=== PATIENT | male | born 1960 | race Caucasian/White ===

== ENCOUNTER 2016-10-03 13:34 | Emergency (ER) | payer MEDICAID ==
--- NOTE | 2016-10-03 13:46 | EDPHY ---
HPI/HX/ROS/PE/MDM Narrative: CHIEF COMPLAINT: Right facial droop. HISTORY OF PRESENT ILLNESS: The patient is a 65-year-old male, brought in by EMS , presenting with right facial droop that started yesterday. The patient has a history of strokes. Yesterday he had dental work and had the right side of his that required anesthesia. The patient has unresolved right sided facial droop. He complains that he does not feel well and states he was more confused. According to EMS report from staff nurse at [facility], the patient has been complaining of polyuria, polydipsia, and dysuria. Patient has history of DM2, during transport BGL was 346. BP 140/90. The patient denies chest pain. Patient is comfort measures only. He takes Aspirin daily. History is difficult to obtain as patient is a very poor historian. REVIEW OF SYSTEMS: Somewhat limited secondary to the patient's clinical condition. PAST MEDICAL HISTORY: Diabetes II, CVA, Vascular dementia, CAD, HTN, Bipolar disease. SOCIAL HISTORY: Resides at [facility]. VITAL SIGNS: Reviewed by me GENERAL: Debilitated, chronically ill appearing. Smells slightly ketotic. Attempts to answer questions, but difficulty following commands. HEENT: Atraumatic. Eyes: No icterus, no injection. Mouth: dry mucous membranes, very poor dentition. No erythema or lesions. Neck: supple with no adenopathy. LUNGS: Diminished breath sounds. CARDIAC: Regular rate and rhythm, no rubs, murmurs or gallops. ABDOMEN: Soft, nontender, nondistended, bowel sounds normal. BACK: No CVA tenderness. EXTREMITIES: Moving all extremities. NEURO: Questionable difficulty closing right eye. Uncooperative with cranial nerve exam. Appears to have right facial droop at rest. Hand animal behaviorist strength is 5 /5 bilaterally. Moving lower extremities. Uncooperative with the full neurologic exam. SKIN: Warm and dry, no rash. PSYCHIATRIC: Normal mentation, no agitation. Portions of this note were transcribed by a medical records coordinator. I personally performed a history, physical exam, medical decision making, and confirmed accuracy of information the transcribed note. ED Course: The patient was brought in by EMS from [facility] for unresolved right facial droop. Yesterday the patient had dental work done to his right side that required anesthesia. He continued to have right sided facial droop today. The patient has a history of stroke and diabetes. On exam he seems very dehydrated. He appears to have right facial droop at rest, though cranial examination is difficult to obtain. Patient is unable to follow complex commands, but responds to questions. Plan to check labs, EKG, and Troponin. CT head was ordered. 12-LEAD EKG: Please see the full report in [facility]. My interpretation: ST depression and T-wave inversions laterally. Suggestive of ischemia. Similar to previous. Head CT was negative. Patient's labs are remarkable for creatinine 1.5 as well as hyperglycemia. He is not acidotic. Consideration was given to admission to the hospital for acute renal insufficiency. EKG is somewhat concerning although similar to prior. However, the patient's MOST form demonstrates that he is comfort measures only. This was verified with the patient. 3:10 p.m.: I spoke to the patient and discussed his wishes. Right facial droop has resolved. Plan to have social work program coordinator speak with the patient. 4:00 p.m. I spoke to case management who will see the patient and look into other options. 4:30 p.m.: The patient would like to go back to [facility]. Plan to discharge. MDM: Differential diagnoses for the patient's symptom complex was considered including but not limited to [place]'s palsy, TIA, CVA, hyperglycemia, electrolyte abnormalities, cardiac ischemia, DKA, acute renal insufficiency, occult infection. - Data Points Imaging Results: Imaging Impressions Head CT 10/03/16 13:50 Impression: Extensive periventricular and deep hemispheric white matter change which is nonspecific and can be seen with small vessel ischemic disease. No evidence for acute intracranial abnormality. Results called and discussed with Suly Guerrero MD, at 1433 hours 10/03/2016. Imaging: Discussed imaging studies w/ retail pos specialist Radiologist Laboratory Results: Laboratory Results 10/03/16 13:50 10/03/16 13:50 10/03/16 10/03/16 10/03/16 13:50 13:50 13:50 WBC 11.18 10^3/uL H 10^3/uL (3.80-9.50) RBC 4.49 10^6/uL 10^6/uL (4.40-6.38) Hgb 14.7 g/dL g/dL (13.7-17.5) Hct 41.7 % % (40.0-51.0) MCV 92.9 fL fL (81.5-99.8) MCH 32.7 pg pg (27.9-34.1) MCHC 35.3 g/dL g/dL (32.4-36.7) RDW 13.3 % % (11.5-15.2) Plt Count 183 10^3/uL 10^3/uL (150-400) MPV 10.1 fL fL (8.7-11.7) Neut % (Auto) 69.1 % % (39.3-74.2) Lymph % (Auto) 17.0 % % (15.0-45.0) [place] % (Auto) 12.6 % % (4.5-13.0) Eos % (Auto) 0.2 % L % (0.6-7.6) Baso % (Auto) 0.7 % % (0.3-1.7) Nucleat RBC Rel Count 0.0 % % (0.0-0.2) Absolute Neuts (auto) 7.73 10^3/uL H 10^3/uL (1.70-6.50) Absolute Lymphs (auto) 1.90 10^3/uL 10^3/uL (1.00-3.00) Absolute Monos (auto) 1.41 10^3/uL H 10^3/uL (0.30-0.80) Absolute Eos (auto) 0.02 10^3/uL L 10^3/uL (0.03-0.40) Absolute Basos (auto) 0.08 10^3/uL 10^3/uL (0.02-0.10) Absolute Nucleated RBC 0.00 10^3/uL 10^3/uL (0-0.01) Immature Gran % 0.4 % % (0.0-1.1) Seg Neutrophils % 67 % % Lymphocytes % 23 % % Monocytes % 9 % % Basophils % 1 % % Immature Gran # 0.04 10^3/uL 10^3/uL (0.00-0.10) Absolute Seg Neuts 7.49 10^/uL H 10^/uL (1.70-6.50) Absolute Lymphocytes 2.57 10^3/uL 10^3/uL (1.00-3.00) Absolute Monocytes 1.01 10^3/uL H 10^3/uL (0.30-0.80) Absolute Basophils 0.11 10^3/uL H 10^3/uL (0.02-0.10) RBC/WBC/PLT Morphology NORMAL (NORMAL) Atypical Lymphocytes 1+ H Platelet Estimate ADEQUATE (ADEQ) PT 13.4 SEC SEC (12.0-15.0) INR 1.03 (0.83-1.16) Sodium 139 mEq/L mEq/L (134-144) Potassium 3.6 mEq/L mEq/L (3.5-5.2) Chloride 100 mEq/L mEq/L (97-110) Carbon Dioxide 27 mEq/l mEq/l (22-31) Anion Gap 12 mEq/L mEq/L (8-16) BUN 43 mg/dL H mg/dL (7-23) Creatinine 1.5 mg/dL H mg/dL (0.7-1.3) Estimated GFR 48 Glucose 331 mg/dL H mg/dL (70-100) Calcium 9.6 mg/dL mg/dL (8.5-10.4) Troponin I 0.016 ng/mL ng/mL (0-0.034) Beta-Hydroxybutyrate 0.06 mmol/L mmol/L (0.02-0.27) Serum Ketones TNP Medications Given: Discontinued Medications Sodium Chloride (Ns) 1,000 mls @ 500 mls/hr IV EDNOW ONE Stop: 10/03/16 15:48 Last Admin: 10/03/16 14:15 Dose: 1,000 mls Insulin Human Regular (Humulin R) 10 unit IVP EDNOW ONE Stop: 10/03/16 15:17 Last Admin: 10/03/16 15:34 Dose: 10 units General Time Seen by Provider: 10/03/16 13:34 Initial Vital Signs: Initial Vital Signs Temperature (C) 36.9 C 10/03/16 13:48 Heart Rate 69 10/03/16 13:48 Respiratory Rate 19 10/03/16 13:48 Blood Pressure 150/98 H 10/03/16 13:48 O2 Sat (%) 95 10/03/16 13:48 O2 Delivery Mode Nasal Cannula O2 (L/minute) 2 Allergies/Adverse Reactions: No Known Allergies Allergy (Unverified 05/23/16 19:11) Home Medications: Medication Instructions Recorded Amlodipine Besylate 12/07/15 Aspirin 12/07/15 Ativan 12/07/15 Atovastatin 12/07/15 Carvedilol 12/07/15 Celexa 12/07/15 Levemir Flextouch 12/07/15 Lisinopril 12/07/15 Miralax 17 gm (OTC) 12/07/15 Novolog 12/07/15 Oxycodone HCl 12/07/15 Plavix 12/07/15 Terazosin HCl 12/07/15 Trileptal 12/07/15 clonIDINE 12/07/15 traZODONE 12/07/15 Departure - Departure Disposition: Home, Routine, Self-Care Clinical Impression: Dehydration, Hyperglycemia, Renal insufficiency, possible TIA Condition: Good Instructions: Dehydration (ED), Diabetic Hyperglycemia (ED) Additional Instructions: #1. Drink plenty of fluids. #2. Take your medications as directed. Referrals: CAROL HADDAD [Primary Care Provider] - As per Instructions Report Scribed for: Suly Guerrero Report Scribed by: Yesica Martinez Date of Report: 10/03/16 Time of Report: 13:51
[2016-10-03] MEDS ORDERED: NS 1,000 ML IV ONE (13:49)
--- NOTE | 2016-10-03 14:00 | CPEKG ---
Heart Rate: 63 RR Interval: 952 P-R Interval: 192 QRSD Interval: 106 QT Interval: 408 QTC Interval: 418 P [place]: 53 QRS [place]: 32 T Wave [place]: 219 EKG Severity - ABNORMAL ECG - EKG Impression: SINUS RHYTHM EKG Impression: CONSIDER ANTEROSEPTAL INFARCT EKG Impression: SECONDARY ST TWAVE ABNORMALITY EKG Impression: INCOMPLETE LEFT BUNDLE BRANCH BLOCK Electronically Signed By: Venu Zhao 07-Oct-2016 14:42:02
[2016-10-03 14:01] LABS: % IMMATURE GRANULYOCYTES 0.4 % (0.0-1.1); ABSOLUTE IMMATURE GRANULOCYTES 0.04 10^3/uL (0.00-0.10); ADD DIFF? NO; ADD MORPH? NO; ADD SCAN? YES; ATYPICAL LYMPHOCYTE FLAG 0 (0-99); FRAGMENT RBC FLAG 0 (0-99); HEMATOCRIT 41.7 % (40.0-51.0); HEMOGLOBIN 14.7 g/dL (13.7-17.5); LEFT SHIFT FLG 20 (0-99); LIPEMIA HEMOLYSIS FLAG 90 (0-99); MEAN CELL HEMOGLOBIN 32.7 pg (27.9-34.1); MEAN CELL HEMOGLOBIN CONCENTR. 35.3 g/dL (32.4-36.7); MEAN CELL VOLUME 92.9 fL (81.5-99.8); MEAN PLATELET VOLUME 10.1 fL (8.7-11.7); PLATELET CLUMPS FLAG 0 (0-99); PLATELET COUNT 183 10^3/uL (150-400); RED BLOOD CELL COUNT 4.49 10^6/uL (4.40-6.38); RED CELL DISTRIBUTION WIDTH 13.3 % (11.5-15.2)
[2016-10-03 14:10] LABS: INR 1.03 (0.83-1.16); PROTIME(PATIENT) 13.4 SEC (12.0-15.0)
[2016-10-03 14:19] LABS: ANION GAP 12 mEq/L (8-16); CALCIUM 9.6 mg/dL (8.5-10.4); CARBON DIOXIDE 27 mEq/l (22-31); CHLORIDE 100 mEq/L (97-110); CREATININE 1.5 mg/dL (0.7-1.3); GLOMERULAR FILTRATION RATE 48; GLUCOSE 331 mg/dL (70-100); POTASSIUM 3.6 mEq/L (3.5-5.2); SODIUM 139 mEq/L (134-144)
[2016-10-03 14:29] LABS: TROPONIN I 0.016 ng/mL (0-0.034)
[2016-10-03 14:37] LABS: SCAN POSITIVE
[2016-10-03 14:41] LABS: PLATELET ESTIMATE ADEQUATE (ADEQ)
[2016-10-03 15:05] LABS: B-HYDROXYBUTYRATE 0.06 mmol/L (0.02-0.27)
[2016-10-03] MEDS ORDERED: INSULIN REGULAR HUMAN 100 UNIT/ML IVP ONE (15:16)
[2016-10-03 18:26] VITALS: BP 140/79; PULSE 70; RESP 20; TEMP 98.2; O2SAT 95
== END 2016-10-03 18:27 | disposition home or self-care (01) ==
LOC: EDUNIT#
DX: E86.0 Dehydration (principal); E11.65 Type 2 diabetes mellitus with hyperglycemia; N28.9 Disorder of kidney and ureter, unspecified; I10 Essential (primary) hypertension; I25.10 Atherosclerotic heart disease of native coronary artery without angina pectoris; Z79.4 Long term (current) use of insulin; Z79.82 Long term (current) use of aspirin; Z86.73 Personal history of transient ischemic attack (TIA), and cerebral infarction without residual deficits
CPT/HCPCS: 96374; J1815

== ENCOUNTER 2016-11-17 02:31 | Emergency (ER) | payer MEDICAID ==
[2016-11-17] MEDS ORDERED: ASPIRIN 81 MG CHEWABLE TAB PO ONE (02:36)
[2016-11-17] MEDS ORDERED: NS 1,000 ML IV ONE (02:36)
--- NOTE | 2016-11-17 02:38 | EDPHY ---
H & P HPI/ROS: HPI CHIEF COMPLAINT: Left-sided chest pain HISTORY OF PRESENT ILLNESS: This patient is a very pleasant 56-year-old male who presents to the emergency room from [facility], he does have significant past medical history for coronary artery disease, CVA, vascular dementia, diabetes, hypertension, bipolar, and presents with left-sided chest discomfort. Of note he has a very poor historian. Cannot tell me when this chest discomfort started. He thinks it has been there for few hours, he cannot describe the pain. Does tell me it is Nonradiating. No associated nausea or vomiting pain no associated diaphoresis. Tells me the pain has been constant is still present. No shortness of breath. No pleuritic pain. Past Medical History: Coronary artery disease, CVA, vascular dementia, diabetes , hypertension, bipolar Past Surgical History: No recent surgical history Social History: Denies daily use of drugs alcohol tobacco products, resides at [facility] Family History: Noncontributory ROS REVIEW OF SYSTEMS: Limited review systems due to place since underlying dementia. Exam Constitutional triage nursing summary reviewed, vital signs reviewed, awake/ alert. Eyes normal conjunctivae and sclera, EOMI, PERRLA. HENT oropharynx poor dentition. normal inspection, atraumatic, moist mucus membranes, no epistaxis, neck supple/ no meningismus, no raccoon eyes. Respiratory clear to auscultation bilaterally, normal breath sounds, no respiratory distress, no wheezing. Cardiovascular rate normal, regular rhythm, no murmur, no edema, distal pulses normal. Gastrointestinal soft, non-tender, no rebound, no guarding, normal bowel sounds, no distension, no pulsatile mass. Genitourinary no CVA tenderness. Musculoskeletal no midline vertebral tenderness, full range of motion, no calf swelling, no tenderness of extremities, no meningismus, good pulses, neurovascularly intact. Skin pink, warm, & dry, no rash, skin atraumatic. Neurologic awake, alert and oriented x 3, AAOx3, moves all 4 extremities equally, motor intact, sensory intact, CN II-XII intact, normal cerebellar, normal vision, normal speech. Psychiatric normal mood/affect. Heme/Lymph/Immune no lymphadenopathy. Differential diagnosis includes but is not limited to: ACS, atypical chest pain , pneumothorax, pneumonia, pulmonary embolism, aortic dissection, congestive heart failure, tumor, musculoskeletal pain, esophageal pain, GERD, peptic ulcer disease, pancreatitis Medical Decision Making: Plan for this patient full teletypesetter monitor, IV establishment, check troponin, EKG, chest x-ray. Full-dose aspirin. Nitroglycerin to see if this improves his chest pain. Re-evaluation: EKG interpretation by me on record in [facility] system. Impression time of EKG 2:47 a.m., sinus rhythm rate of 55 abnormal T-wave abnormalities V4 V5 V6. However when I compare this EKG to his old EKG dated 10/03/2016 very similar morphology. Q-waves down V1 V2 V3. And T-wave abnormality seen in V4 V5 V6 drip very similar to previous EKG. Morphology appears same. I do not appreciate acute new ischemic changes on this EKG. 0506: Patient noted to be hypertensive when he arrived here. I have ordered him a dose of clonidine as he does take this at home. His EKG is unchanged from his previous EKG negative D-dimer, negative troponin. Chest x-ray is unremarkable here. I did re-evaluate him at this time. He tells me has no chest pain adamantly asking to go home. He is requesting discharge. I explained we should repeat his EKG and troponin and 4 hours just to make sure he is okay. His EKG is unchanged from his previous EKGs. Currently has no chest pain. 0508AM: Patient continuously asked me to be discharged to go home. I explained we need to be careful repeat his EKG and troponin. He is agreeable for this at this time. 0628AM: This is a repeat EKG time of EKG 6:26 a.m., sinus rhythm rate of 54 again noted T-wave abnormalities in V4 V5 V6. Q-waves in V1 V2 V3. T-wave abnormality seen in 2 3 AVF. Again when I compare this EKG to his old EKG dated 10/03/2016 very similar morphology also this EKG is very similar morphology to his previous 1 this evening time 2:47 a.m.. Repeat troponin pending at this time. 0629: Again this patient has no chest pain. He is again requesting be discharged back to [facility]. His repeat EKG is not acutely changed from his previous old EKG and the 1 from today. If his 2nd troponin is negative he has not had any chest pain here he is requesting discharge her allowed to go home as he has unchanged EKG from previous as well as 2-troponins. I feel that it is reasonable to allow her to go back to [facility]. He does understand if develops chest pain, shortness of breath return emergency room. 0655AM: Repeat troponin is negative. Patient is again asking me to be discharged. Given that he has 2 EKGs that are unchanged from his previous EKG and 2-troponins spaced over 4 hours apart and spaced 5-6 hours from his time of onset of symptoms which was not very specific. I feel it is reasonable to allowed to go home. He has no ongoing chest pain. His EKG is stable from previous EKGs and 2-troponins. Source: Patient, EMS - Medical/Surgical History Hx Asthma: No Hx Chronic Respiratory Disease: No Hx Diabetes: Yes Hx Cardiac Disease: Yes Hx Renal Disease: No Hx Cirrhosis: No Hx Alcoholism: No Hx HIV/AIDS: No Hx Splenectomy or Spleen Trauma: No Other PMH: cva,htn,niddm,bipolar,dementia,cad, - Social History Smoking Status: Unknown if ever smoked Constitutional: Initial Vital Signs Temperature (C) 36.7 C 11/17/16 02:36 Heart Rate 54 L 11/17/16 02:36 Respiratory Rate 16 11/17/16 02:36 Blood Pressure 181/112 H 11/17/16 02:36 O2 Sat (%) 92 11/17/16 02:36 O2 Delivery Mode Room Air Allergies/Adverse Reactions: No Known Allergies Allergy (Unverified 11/17/16 02:35) Home Medications: Medication Instructions Recorded Amlodipine Besylate 12/07/15 Aspirin 12/07/15 Ativan 12/07/15 Atovastatin 12/07/15 Carvedilol 12/07/15 Celexa 12/07/15 Levemir Flextouch 12/07/15 Lisinopril 12/07/15 Miralax 17 gm (OTC) 12/07/15 Novolog 12/07/15 Oxycodone HCl 12/07/15 Plavix 12/07/15 Terazosin HCl 12/07/15 Trileptal 12/07/15 clonIDINE 12/07/15 traZODONE 12/07/15 Medical Decision Making - Data Points Laboratory Results: Laboratory Results 11/17/16 02:30 11/17/16 02:30 11/17/16 11/17/16 11/17/16 06:25 02:30 02:30 WBC RBC Hgb Hct MCV MCH MCHC RDW Plt Count MPV Neut % (Auto) Lymph % (Auto) [place] % (Auto) Eos % (Auto) Baso % (Auto) Nucleat RBC Rel Count Absolute Neuts (auto) Absolute Lymphs (auto) Absolute Monos (auto) Absolute Eos (auto) Absolute Basos (auto) Absolute Nucleated RBC Immature Gran % Immature Gran # PT 13.9 SEC SEC (12.0-15.0) INR 1.08 (0.83-1.16) APTT 29.6 SEC SEC (23.0-38.0) D-Dimer 0.28 ug/mLFEU ug/mLFEU (0.00-0.50) Sodium 135 mEq/L mEq/L (134-144) Potassium 3.9 mEq/L mEq/L (3.5-5.2) Chloride 101 mEq/L mEq/L (97-110) Carbon Dioxide 22 mEq/l mEq/l (22-31) Anion Gap 12 mEq/L mEq/L (8-16) BUN 21 mg/dL mg/dL (7-23) Creatinine 1.0 mg/dL mg/dL (0.7-1.3) Estimated GFR > 60 Glucose 283 mg/dL H mg/dL (70-100) Calcium 9.4 mg/dL mg/dL (8.5-10.4) Magnesium 1.9 mg/dL mg/dL (1.6-2.3) Total Bilirubin 0.8 mg/dL mg/dL (0.1-1.4) Conjugated Bilirubin 0.5 mg/dL mg/dL (0.0-0.5) Unconjugated Bilirubin 0.3 mg/dL mg/dL (0.0-1.1) AST 19 IU/L IU/L (17-59) ALT 32 IU/L IU/L (21-72) Alkaline Phosphatase 101 IU/L IU/L (38-126) Creatine Kinase 58 IU/L IU/L (0-224) CK-MB (CK-2) Fraction 1.52 ng/mL ng/mL (0-3.19) Troponin I < 0.012 ng/mL ng/mL < 0.012 ng/mL ng/mL (0-0.034) (0-0.034) NT-Pro-B Natriuret Pep 199 pg/mL H pg/mL (0-125) Total Protein 7.6 g/dL g/dL (6.3-8.2) Albumin 4.3 g/dL g/dL (3.5-5.0) Lipase 67.0 IU/L IU/L (23-300) 11/17/16 02:30 WBC 8.33 10^3/uL 10^3/uL (3.80-9.50) RBC 4.53 10^6/uL 10^6/uL (4.40-6.38) Hgb 14.8 g/dL g/dL (13.7-17.5) Hct 41.3 % % (40.0-51.0) MCV 91.2 fL fL (81.5-99.8) MCH 32.7 pg pg (27.9-34.1) MCHC 35.8 g/dL g/dL (32.4-36.7) RDW 12.7 % % (11.5-15.2) Plt Count 243 10^3/uL 10^3/uL (150-400) MPV 9.6 fL fL (8.7-11.7) Neut % (Auto) 62.2 % % (39.3-74.2) Lymph % (Auto) 22.8 % % (15.0-45.0) [place] % (Auto) 10.9 % % (4.5-13.0) Eos % (Auto) 2.9 % % (0.6-7.6) Baso % (Auto) 0.8 % % (0.3-1.7) Nucleat RBC Rel Count 0.0 % % (0.0-0.2) Absolute Neuts (auto) 5.18 10^3/uL 10^3/uL (1.70-6.50) Absolute Lymphs (auto) 1.90 10^3/uL 10^3/uL (1.00-3.00) Absolute Monos (auto) 0.91 10^3/uL H 10^3/uL (0.30-0.80) Absolute Eos (auto) 0.24 10^3/uL 10^3/uL (0.03-0.40) Absolute Basos (auto) 0.07 10^3/uL 10^3/uL (0.02-0.10) Absolute Nucleated RBC 0.00 10^3/uL 10^3/uL (0-0.01) Immature Gran % 0.4 % % (0.0-1.1) Immature Gran # 0.03 10^3/uL 10^3/uL (0.00-0.10) PT INR APTT D-Dimer Sodium Potassium Chloride Carbon Dioxide Anion Gap BUN Creatinine Estimated GFR Glucose Calcium Magnesium Total Bilirubin Conjugated Bilirubin Unconjugated Bilirubin AST ALT Alkaline Phosphatase Creatine Kinase CK-MB (CK-2) Fraction Troponin I NT-Pro-B Natriuret Pep Total Protein Albumin Lipase Medications Given: Discontinued Medications Aspirin (Aspirin) 324 mg PO EDNOW ONE Stop: 11/17/16 02:37 Last Admin: 11/17/16 02:49 Dose: 324 mg Clonidine (Catapres) 0.2 mg PO EDNOW ONE Stop: 11/17/16 05:04 Last Admin: 11/17/16 05:08 Dose: 0.2 mg Sodium Chloride (Ns) 1,000 mls @ 0 mls/hr IV ONCE ONE; Wide Open PRN Reason: Protocol Stop: 11/17/16 02:37 Last Admin: 11/17/16 02:56 Dose: 1,000 mls Nitroglycerin (Nitrostat) 0.4 mg SL Q5M PRN PRN Reason: Chest Pain Stop: 11/17/16 02:47 Last Admin: 11/17/16 02:56 Dose: 1 tab Departure - Departure Disposition: Home, Routine, Self-Care Clinical Impression: Chest pain Qualifiers: Chest pain type: unspecified Qualified Code(s): R07.9 - Chest pain, unspecified Condition: Good Instructions: Chest Pain (ED) Additional Instructions: 1. Return emergency room if develops worsening symptoms includes chest pain, shortness of breath, fever, vomiting. Referrals: Patient,NotPresent [Unknown] - As per Instructions
[2016-11-17 02:39] VITALS: TEMP 98.1
[2016-11-17 02:46] LABS: % IMMATURE GRANULYOCYTES 0.4 % (0.0-1.1); ABSOLUTE IMMATURE GRANULOCYTES 0.03 10^3/uL (0.00-0.10); ADD DIFF? NO; ADD MORPH? NO; ADD SCAN? NO; ATYPICAL LYMPHOCYTE FLAG 0 (0-99); FRAGMENT RBC FLAG 0 (0-99); HEMATOCRIT 41.3 % (40.0-51.0); HEMOGLOBIN 14.8 g/dL (13.7-17.5); LEFT SHIFT FLG 0 (0-99); LIPEMIA HEMOLYSIS FLAG 90 (0-99); MEAN CELL HEMOGLOBIN 32.7 pg (27.9-34.1); MEAN CELL HEMOGLOBIN CONCENTR. 35.8 g/dL (32.4-36.7); MEAN CELL VOLUME 91.2 fL (81.5-99.8); MEAN PLATELET VOLUME 9.6 fL (8.7-11.7); PLATELET CLUMPS FLAG 10 (0-99); PLATELET COUNT 243 10^3/uL (150-400); RED BLOOD CELL COUNT 4.53 10^6/uL (4.40-6.38); RED CELL DISTRIBUTION WIDTH 12.7 % (11.5-15.2)
--- NOTE | 2016-11-17 02:48 | CPEKG ---
Heart Rate: 55 RR Interval: 1091 QRSD Interval: 114 QT Interval: 444 QTC Interval: 425 QRS [place]: 55 T Wave [place]: 254 EKG Severity - ABNORMAL ECG - EKG Impression: ATRIAL FIBRILLATION EKG Impression: NONSPECIFIC INTRAVENTRICULAR CONDUCTION DELAY EKG Impression: PROBABLE INFERIOR INFARCT, AGE INDETERMINATE EKG Impression: CONSIDER ANTEROSEPTAL INFARCT Electronically Signed By: Nick Koch 17-Nov-2016 05:48:58
[2016-11-17] MEDS: NITROGLYCERIN 0.4 MG BTL SL PRN ×2 (02:49→02:56)
[2016-11-17 02:57] LABS: INR 1.08 (0.83-1.16); PROTIME(PATIENT) 13.9 SEC (12.0-15.0)
[2016-11-17 02:58] LABS: APTT 29.6 SEC (23.0-38.0)
[2016-11-17 03:09] LABS: ALANINE AMINOTRANSFERASE 32 IU/L (21-72); ALBUMIN 4.3 g/dL (3.5-5.0); ALKALINE PHOSPHATASE 101 IU/L (38-126); ANION GAP 12 mEq/L (8-16); ASPARTATE AMINOTRANSFERASE 19 IU/L (17-59); BILIRUBIN,TOTAL 0.8 mg/dL (0.1-1.4); BILIRUBIN-CONJUGATED 0.5 mg/dL (0.0-0.5); BILIRUBIN-UNCONJUGATED 0.3 mg/dL (0.0-1.1); CALCIUM 9.4 mg/dL (8.5-10.4); CARBON DIOXIDE 22 mEq/l (22-31); CHLORIDE 101 mEq/L (97-110); GLOMERULAR FILTRATION RATE > 60; GLUCOSE 283 mg/dL (70-100); MAGNESIUM 1.9 mg/dL (1.6-2.3); POTASSIUM 3.9 mEq/L (3.5-5.2); SODIUM 135 mEq/L (134-144); TOTAL PROTEIN 7.6 g/dL (6.3-8.2)
[2016-11-17 03:20] LABS: CREATINE KINASE-MB FRACTION 1.52 ng/mL (0-3.19); TROPONIN I < 0.012 ng/mL (0-0.034)
--- NOTE | 2016-11-17 06:27 | CPEKG ---
Heart Rate: 54 RR Interval: 1111 P-R Interval: 208 QRSD Interval: 114 QT Interval: 468 QTC Interval: 444 P [place]: 76 QRS [place]: 67 T Wave [place]: 250 EKG Severity - ABNORMAL ECG - EKG Impression: SINUS RHYTHM EKG Impression: NONSPECIFIC INTRAVENTRICULAR CONDUCTION DELAY EKG Impression: PROBABLE LVH WITH SECONDARY REPOL ABNRM EKG Impression: ANTERIOR Q WAVES, POSSIBLY DUE TO LVH Electronically Signed By: Gretel Reed 17-Nov-2016 16:11:15
[2016-11-17 07:52] VITALS: BP 161/92; PULSE 48; RESP 14; O2SAT 95
== END 2016-11-17 07:50 | disposition home or self-care (01) ==
LOC: EDUNIT#
DX: R07.9 Chest pain, unspecified (principal); I25.10 Atherosclerotic heart disease of native coronary artery without angina pectoris; E11.9 Type 2 diabetes mellitus without complications; I10 Essential (primary) hypertension; Z86.73 Personal history of transient ischemic attack (TIA), and cerebral infarction without residual deficits; Z79.82 Long term (current) use of aspirin

== ENCOUNTER 2017-03-12 18:33 | Emergency (ER) | payer MEDICAID ==
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
[2017-03-12 18:44] VITALS: TEMP 97.9
[2017-03-12 18:54] LABS: % IMMATURE GRANULYOCYTES 0.3 % (0.0-1.1); ABSOLUTE IMMATURE GRANULOCYTES 0.02 10^3/uL (0.00-0.10); ADD DIFF? NO; ADD MORPH? NO; ADD SCAN? NO; ATYPICAL LYMPHOCYTE FLAG 10 (0-99); FRAGMENT RBC FLAG 0 (0-99); HEMATOCRIT 37.9 % (40.0-51.0); HEMOGLOBIN 13.5 g/dL (13.7-17.5); LEFT SHIFT FLG 0 (0-99); LIPEMIA HEMOLYSIS FLAG 90 (0-99); MEAN CELL HEMOGLOBIN 32.9 pg (27.9-34.1); MEAN CELL HEMOGLOBIN CONCENTR. 35.6 g/dL (32.4-36.7); MEAN CELL VOLUME 92.4 fL (81.5-99.8); MEAN PLATELET VOLUME 9.6 fL (8.7-11.7); PLATELET CLUMPS FLAG 0 (0-99); PLATELET COUNT 196 10^3/uL (150-400); RED CELL DISTRIBUTION WIDTH 13.1 % (11.5-15.2)
[2017-03-12 19:05] LABS: ANION GAP 11 mEq/L (8-16); CALCIUM 9.3 mg/dL (8.5-10.4); CARBON DIOXIDE 23 mEq/l (22-31); CHLORIDE 103 mEq/L (97-110); ETHANOL SERUM < 10 mg/dL (0-10); GLOMERULAR FILTRATION RATE > 60; GLUCOSE 226 mg/dL (70-100); POTASSIUM 4.1 mEq/L (3.5-5.2); SALICYLATE < 1.0 mg/dL (2.0-20.0); SODIUM 137 mEq/L (134-144)
[2017-03-13] MEDS ORDERED: CARVEDILOL 25 MG TAB PO ONE (03:01)
[2017-03-13] MEDS ORDERED: TERAZOSIN HCL 2 MG CAP PO ONE (03:02)
[2017-03-13] MEDS ORDERED: INSULIN GLARGINE 100 UNITS/ML SYRINGE SC ONE ×2 (03:26→04:00)
[2017-03-13 03:54] LABS: COLOR YELLOW; LEUKOCYTE ESTERASE,URINE NEGATIVE (NEGATIVE); NITRITE,URINE NEGATIVE (NEGATIVE)
[2017-03-13 04:00] LABS: MUCUS TRACE /lpf (NONE-1+)
[2017-03-13 04:33] VITALS: BP 194/113; PULSE 56; RESP 16; O2SAT 95
== END 2017-03-13 04:47 | disposition home or self-care (01) ==
LOC: EDUNIT#
DX: F91.8 Other conduct disorders (principal); E11.9 Type 2 diabetes mellitus without complications; I10 Essential (primary) hypertension; I25.10 Atherosclerotic heart disease of native coronary artery without angina pectoris; Z79.82 Long term (current) use of aspirin; Z79.4 Long term (current) use of insulin; Z86.73 Personal history of transient ischemic attack (TIA), and cerebral infarction without residual deficits
CPT/HCPCS: 80305; G0480; J1815

== ENCOUNTER 2017-07-07 06:19 | Observation (INO) | payer MEDICAID ==
[2017-07-07] MEDS ORDERED: LABETALOL HCL 5 MG/ML 20 ML MDV IVP PRN (06:23)
[2017-07-07] MEDS: NS 1,000 ML IV ONE ×2 (06:30→08:19)
[2017-07-07] MEDS ORDERED: ACETAMINOPHEN 650 MG SUPP PR ONE (06:37)
--- NOTE | 2017-07-07 06:43 | EDPHY ---
H & P Stated Complaint: Slurred speech Source: Patient, EMS Exam Limitations: Physical impairment - Medical/Surgical History Hx Asthma: No Hx Chronic Respiratory Disease: No Hx Diabetes: Yes Hx Cardiac Disease: Yes Hx Renal Disease: No Hx Cirrhosis: No Hx Alcoholism: No Hx HIV/AIDS: No Hx Splenectomy or Spleen Trauma: No Other PMH: cva,htn,niddm,bipolar,dementia,cad,tbi - Social History Smoking Status: Unknown if ever smoked Time Seen by Provider: 07/07/17 06:23 HPI/ROS: HPI The patient presents brought in by ambulance from [facility] with concern for stroke. He comes in as a stroke alert. According to [facility], the patient's glucose was quite low last night in the 40s. He was given oral glucose. His repeat blood glucoses were normal. He was noted to be very tired last night and spent most of the night in bed which is unusual for him, he normally is very ambulatory in the evening hours. He was last seen normal at about 8:00 p.m.. This morning, he awoke and was noted to have a right-sided facial droop. There was also some slurring of his speech and he seemed very weak and lethargic, unable to hold himself upright.. His temperature was checked and was 102.9. He does have a history of prior UTI. He has a history of a prior CVA as well as vascular dementia. REVIEW OF SYSTEMS Constitutional: No fever, no chills. Eyes: No discharge. ENT: No sore throat. Cardiovascular: No chest pain, no palpitations. Respiratory: No cough, no shortness of breath. Gastrointestinal: No abdominal pain, no vomiting. Genitourinary: No hematuria. Musculoskeletal: No back pain. Skin: No rashes. Neurological: No headache. PMHx: History of CVA on Plavix, history of vascular dementia, type 2 diabetes on insulin, bipolar disorder, hypertension, CAD, history of aggressive behavior. Soc Hx: Resides at [facility]. PHYSICAL General Appearance: Alert, no distress Eyes: Pupils equal and round no pallor or injection ENT, Mouth: Mucous membranes dry Respiratory: There are no retractions, lungs are clear to auscultation Cardiovascular: Regular rate and rhythm Gastrointestinal: Abdomen is soft and non-tender, no masses, bowel sounds normal : There is diffuse erythema of the scrotum and penis Neurological: Alert, oriented to person and place, no facial droop appreciated , cranial nerves 2-12 intact, 5/5 strength in upper and lower extremities the with poor effort Skin: Warm and dry, no rashes Musculoskeletal: Neck is supple non tender Extremities: symmetrical, full range of motion Psychiatric: Patient is somewhat agitated, requiring security to restrain him (Estefania Diaz) Constitutional: Initial Vital Signs O2 Sat (%) 95 07/07/17 06:25 O2 Delivery Mode Nasal Cannula O2 (L/minute) 2 Allergies/Adverse Reactions: No Known Allergies Allergy (Unverified 11/17/16 02:35) Home Medications: Medication Instructions Recorded Amlodipine Besylate 12/07/15 Aspirin 12/07/15 Ativan 12/07/15 Atovastatin 12/07/15 Carvedilol 12/07/15 Celexa 12/07/15 Levemir Flextouch 12/07/15 Lisinopril 12/07/15 Miralax 17 gm (OTC) 12/07/15 Novolog 12/07/15 Oxycodone HCl 12/07/15 Plavix 12/07/15 Terazosin HCl 12/07/15 Trileptal 12/07/15 clonIDINE 12/07/15 traZODONE 12/07/15 Medical Decision Making Differential Diagnosis: This is a 57-year-old male, brought in by ambulance from [facility], with past medical history of CVA on Plavix, CAD, hypertension, vascular dementia who presents with lethargy, right-sided facial droop, slurring of his speech, fever to 103 F. He was examined briefly and then went to CT scan for evaluation for stroke. CT scan was unchanged from prior except for increased sinusitis. Additional history was obtained and the patient has had a fever, making infectious source more likely for the symptoms. When I examined him in room, he did not have a facial droop as reported. He has poor effort on testing of his strength but it seems to be symmetric bilaterally. He is somewhat confused, however I am not sure if this is baseline. He answers questions, however his comments are not always linear. Lab results have began to return and the patient is positive for the flu. I feel this could explain his fever and confusion. Chest x-ray, UA are pending. Patient's troponin is elevated and because of this we will check an EKG and give aspirin. Because of the patient's current state, I do not think he can return to [facility], he should be admitted. I signed out the case to Dr. Chatman who will follow-up on his evaluation and likely admit him to the hospital. He has received IV fluids. (Estefania Diaz) Other Provider: Flu positive. Troponin is elevated 0.038. EKG ordered. The 12 lead EKG was interpreted by myself. Sinus tachycardia. See hard copy and/ or "tracemaster" electronic copy for interpretation. UA was never received by the lab. Will attempt to get another sample. Spoke with hospitalist service. Dr. Urban accepts admission. (Derrell Chatman) - Data Points Laboratory Results: Laboratory Results 07/07/17 06:40 07/07/17 06:40 07/07/17 07/07/17 07/07/17 06:40 06:40 06:40 WBC RBC Hgb Hct MCV MCH MCHC RDW Plt Count MPV Neut % (Auto) Lymph % (Auto) [place] % (Auto) Eos % (Auto) Baso % (Auto) Nucleat RBC Rel Count Absolute Neuts (auto) Absolute Lymphs (auto) Absolute Monos (auto) Absolute Eos (auto) Absolute Basos (auto) Absolute Nucleated RBC Immature Gran % Seg Neutrophils % Band Neutrophils % Lymphocytes % Monocytes % Immature Gran # Absolute Seg Neuts Absolute Band Neuts Absolute Lymphocytes Absolute Monocytes RBC/WBC/PLT Morphology Platelet Estimate PT 14.6 SEC SEC (12.0-15.0) INR 1.12 (0.83-1.16) APTT 32.2 SEC SEC (23.0-38.0) Sodium 142 mEq/L mEq/L (135-145) Potassium 5.0 mEq/L mEq/L (3.5-5.2) Chloride 105 mEq/L mEq/L (97-110) Carbon Dioxide 24 mEq/l mEq/l (22-31) Anion Gap 13 mEq/L mEq/L (8-16) BUN 17 mg/dL mg/dL (7-23) Creatinine 1.1 mg/dL mg/dL (0.7-1.3) Estimated GFR > 60 Glucose 120 mg/dL H mg/dL (70-100) Calcium 8.6 mg/dL mg/dL (8.5-10.4) Troponin I 0.038 ng/mL H ng/mL (0.000-0.034) NT-Pro-B Natriuret Pep Pending Specimen Hemolysis 165 Nasal Influenza A PCR Nasal Influenza B PCR RSV (PCR) 07/07/17 07/07/17 06:40 06:22 WBC 7.43 10^3/uL 10^3/uL (3.80-9.50) RBC 4.33 10^6/uL L 10^6/uL (4.40-6.38) Hgb 13.8 g/dL g/dL (13.7-17.5) Hct 39.0 % L % (40.0-51.0) MCV 90.1 fL fL (81.5-99.8) MCH 31.9 pg pg (27.9-34.1) MCHC 35.4 g/dL g/dL (32.4-36.7) RDW 14.7 % % (11.5-15.2) Plt Count 147 10^3/uL L 10^3/uL (150-400) MPV 10.2 fL fL (8.7-11.7) Neut % (Auto) Not Reported Lymph % (Auto) Not Reported [place] % (Auto) Not Reported Eos % (Auto) Not Reported Baso % (Auto) Not Reported Nucleat RBC Rel Count 0.0 % % (0.0-0.2) Absolute Neuts (auto) Not Reported Absolute Lymphs (auto) Not Reported Absolute Monos (auto) Not Reported Absolute Eos (auto) Not Reported Absolute Basos (auto) Not Reported Absolute Nucleated RBC 0.00 10^3/uL 10^3/uL (0-0.01) Immature Gran % Not Reported Seg Neutrophils % 65 % % Band Neutrophils % 2 % % Lymphocytes % 16 % % Monocytes % 17 % % Immature Gran # Not Reported Absolute Seg Neuts 4.83 10^/uL 10^/uL (1.70-6.50) Absolute Band Neuts 0.15 10^3/uL 10^3/uL (0.00-0.70) Absolute Lymphocytes 1.19 10^3/uL 10^3/uL (1.00-3.00) Absolute Monocytes 1.26 10^3/uL H 10^3/uL (0.30-0.80) RBC/WBC/PLT Morphology NORMAL (NORMAL) Platelet Estimate DECREASED L (ADEQ) PT INR APTT Sodium Potassium Chloride Carbon Dioxide Anion Gap BUN Creatinine Estimated GFR Glucose Calcium Troponin I NT-Pro-B Natriuret Pep Specimen Hemolysis Nasal Influenza A PCR NEGATIVE FOR FLU A (NEGATIVE) Nasal Influenza B PCR FLU B DETECTED H (NEGATIVE) RSV (PCR) NEGATIVE FOR RSV (NEGATIVE) Medications Given: Sodium Chloride (Ns) 1,000 mls @ 500 mls/hr IV EDNOW ONE PRN Reason: Protocol Stop: 07/07/17 08:22 Last Admin: 07/07/17 06:30 Dose: 1,000 mls Departure - Departure Disposition: [facility] In[facility] Acute Clinical Impression: Influenza, Fever, Elevated troponin Condition: Fair Referrals: Patient,NotPresent [Primary Care Provider] - As per Instructions
[2017-07-07 07:04] LABS: PLATELET COUNT 147 10^3/uL (150-400)
[2017-07-07 07:13] LABS: INR 1.12 (0.83-1.16); PROTIME(PATIENT) 14.6 SEC (12.0-15.0)
--- NOTE | 2017-07-07 07:46 | CPEKG ---
Heart Rate: 100 RR Interval: 600 P-R Interval: 188 QRSD Interval: 98 QT Interval: 340 QTC Interval: 439 P Bush: 74 QRS Bush: 58 T Wave Bush: 234 EKG Severity - ABNORMAL ECG - EKG Impression: SINUS TACHYCARDIA Electronically Signed By: Estefania Diaz 08-Jul-2017 06:42:23
[2017-07-07] MEDS ORDERED: NS 1,000 ML IV ONE (08:06)
[2017-07-07] MEDS ORDERED: ACETAMINOPHEN 500 MG TAB ONE (08:16)
[2017-07-07] MEDS ORDERED: ACETAMINOPHEN 500 MG TAB PO ONE (08:16)
[2017-07-07] MEDS ORDERED: LORazepam 2 MG/ML INJ ONE (10:22)
[2017-07-07] MEDS ORDERED: ONDANSETRON 4 MG/2 ML VIAL IVP PRN (11:56)
[2017-07-07] MEDS ORDERED: ONDANSETRON DISINTEGRATING 4 MG TAB PO PRN (11:56)
[2017-07-07] MEDS ORDERED: ACETAMINOPHEN 325 MG TAB PO PRN (11:56)
[2017-07-07] MEDS ORDERED: POLYVINYL ALCOHOL EACHEYE PRN (11:58)
[2017-07-07] MEDS ORDERED: D50W 25 GM/50 ML SYR IVP PRN (12:00)
--- NOTE | 2017-07-07 14:12 | GHP ---
[f rep st] HISTORY AND PHYSICAL DATE OF ADMISSION: 07/07/2017 CHIEF COMPLAINT: Stroke alert. HISTORY OF PRESENT ILLNESS: This is a 57-year-old man who resides at [facility], who was brought in as a stroke alert. History from the patient is somewhat difficult, he is quite a poor historian. Apparently, he was last seen normal at 8 p.m. Per ED report, he noticed some right-sided facial agusto op. He is denying this to me. There is also concern for some slurring of speech. He was also febri le. He tells me that he is always weak, it does not sound like it is a focal weakness, however. He is denying specifically headache, change in vision, chest pain, shortness of breath, nausea, vomiting , dysuria, new rash or any change in his weakness. PAST MEDICAL AND SURGICAL HISTORY: 1. History of a CVA, unknown deficits. 2. Vascular dementia. 3. Diabetes mellitus type 2. 4. Hypertension. 5. Coronary artery disease, has never had stents. 6. Bipolar. 7. Hand surgery. MEDICATIONS: Please see medication reconciliation. ALLERGIES: No known drug allergies. SOCIAL HISTORY: Resides at [facility]. He smokes, he does not drink. FAMILY HISTORY: Reviewed and noncontributory. REVIEW OF SYSTEMS: 10-point review of systems is conducted and is negative except per HPI. PHYSICAL EXAM: VITAL SIGNS: Blood pressure 160/89, heart rate 74, respiration rate 16, saturating 9 8% on 2 L, temperature is 37. GENERAL: The patient is a pleasant man who is lying on his side. Juan J ears comfortable. HEENT: Shows him to be normocephalic, atraumatic. CARDIOVASCULAR: Shows a regul ar rate and rhythm. No murmurs, rubs, or gallops. PULMONARY: Show lungs clear to auscultation bila terally. He is breathing comfortably. ABDOMINAL: Obese, but he is nontender, nondistended. SKIN: Shows no rash. : Shows no [place]. NEUROLOGIC: Shows him to be alert and oriented x2. He is ove rall a nonfocal neurologic exam. Cranial nerves 2-12 are intact. His motor is 5/5 in upper and lowe r extremities. Sensation to light touch is intact in upper and lower extremities. I did not see him ambulate. PSYCHIATRIC: Shows him to have a flat affect. LABS: White count is normal. INR is 1.12. Basic metabolic panel is normal. Troponin 0.03. A BNP is 1070. Urinalysis has not been collected yet. He is positive for influenza B, negative for RSV. DATA: 1. I discussed this with Dr. Hart, we will admit to PCU. 2. I personally reviewed and interpreted his EKG. This shows some T-wave inversions in V4 through V 6, 2, 3 and AVF, as well as V1. I compared this to his prior, it is unchanged. 3. Chest x-ray, which I personally reviewed and interpreted, shows mild peribronchial thickening. 4. Head CT is negative for hemorrhage, it did show atrophy, nothing acute. Possible worsening sinus itis. IMPRESSION AND PLAN: 1. Questionable stroke: I am not very clear on his baseline, he is certainly out of the window for tPA, unclear if he really has any new neurologic deficits. We will try to confirm with Mattie Marshall what his baseline is. At this point, we will just do a swallow study, check ultrasound of his heart , as well as carotid Dopplers. If he did have any deficits, very well may be unmasking of old defici ts in the setting of influenza. 2. Indeterminate troponin: He is not having any chest pain. Will trend [address] more [address] We will place him on telemetry. I really doubt acute coronary syndrome at this point. His EKG is abnormal, but unchanged. He has a history of coronary artery disease with no stents. 3. Influenza B positive: I am starting him on Tamiflu. This likely accounts for his fever and mayb e confusion. 4. Elevated BNP: We will go ahead and get an echocardiogram. Suspect that this may be due to right -sided strain from acute bronchitis. 5. Diabetes mellitus type 2: We will trend his glucoses and continue his insulin. 6. Hypertension: Home medications. 7. Coronary artery disease: Aspirin, statin, beta sabas. 8. Bipolar disorder: We will continue his Seroquel, Trileptal. 9. Code status: Requested to be full code per Mattie Marshall records. 10. Venous thromboembolism risk: He is moderate if he stays more than 1 midnight. We will start nh m on pharmacologic prophylaxis. /[id number]/MODL
--- NOTE | 2017-07-07 14:34 | ECHO ---
[email or web address] [address] [address] Main: [phone] Fax: Transthoracic Echocardiogram Name: VERENICE SCOTT MR#: [id number] Study Date: 07/07/2017 Study Time: 02:11 PM Date of : 1960 Age: 57 year(s) Height: 177.8 cm (70 in.) Weight: 105.69 kg (233 lb.) BSA: 2.23 m2 Gender: Male Examination: Echo Indication: Question TIA Image Quality: Technically Difficult Contrast: Requested by: Juancarlos Urban BP: 165 mmHg/101 mmHg Heart Rate: Rhythm: Indication: Question TIA Procedure Staff Senior Planning Analyst: Lisa Garcia [facility] Reading Physician: Mando Peace Requesting Provider: Conclusions: Normal left ventricular systolic function. Mild to moderate aortic regurgitation. Measurements: Chambers Valvular Assessment AV/MV Valvular Assessment TV/PV Normal Normal Normal Name Value Range Name Value Range Name Value Range Ao Yaz (MM): 3.9 cm (2.2 cm-3.7 MV E Vmax: 0.58 m/s ( - ) cm) MV A Vmax: 0.80 m/s ( - ) IVSd (2D): 1.0 cm (0.6 cm-1.1 MV E/A: 0.72 ( - ) cm) LVDd (2D): 6.0 cm (4.2 cm-5.9 cm) LVDs (2D): 4.1 cm (2.1 cm-4 cm) LVPWd (2D): 1.1 cm (0.6 cm-1 cm) LVEF (2D): 58 (>=54 %) EF Range: 65-70 % Continued Measurements: Chambers Name Value LADs: 4.0 cm Findings: Left Ventricle: Normal size left ventricle. Mild concentric LV hypertrophy. Normal global systolic LV function. The ejection fraction is estimated to be 65-70 %. Patient: VERENICE SCOTT Study Date: 07/07/2017 Page 1 of 2 02:11 PM Right Ventricle: Normal size right ventricle. Left Atrium: The left atrium is mildly dilated. Right Atrium: The right atrium is mildly dilated. Aortic Valve: Mild to moderate aortic valve regurgitation. Pericardium: Trivial pericardial effusion. Exam Comments: [facility]ie [facility] resident with history of CVA.. (No Signature Object) Patient: VERENICE SCOTT Study Date: 07/07/2017 Page 2 of 2 02:11 PM [id number]
[2017-07-07] MEDS ORDERED: TEARS/DEXTRAN 70/HYPROMELLOSE 15 ML OPHT.BTL EACHEYE PRN (14:43)
[2017-07-07] MEDS: INSULIN LISPRO 100 UNIT/ML SC SCH ×2 (15:41→16:19)
[2017-07-07] MEDS: VALPROIC ACID 250 MG/5 ML UDCUP PO SCH (16:41)
[2017-07-07] MEDS: NICOTINE 21 MG/24 HR PATCH TD SCH (17:37)
[2017-07-07] MEDS: CARVEDILOL 25 MG TAB PO SCH (17:38)
[2017-07-07] MEDS: FAMOTIDINE 20 MG TAB PO SCH (17:38)
[2017-07-07] MEDS: OSELTAMIVIR PHOSPHATE 75 MG CAP PO SCH (17:38)
[2017-07-07] MEDS ORDERED: NON-FORMULARY NEW DRUG (Ranitidine Hcl [Zantac] 150 MG) PO SCH (18:00)
[2017-07-07] MEDS: OXcarbazepine 300 MG TAB PO SCH (20:23)
[2017-07-07] MEDS: QUEtiapine FUMARATE 50 MG TAB PO SCH (20:23)
[2017-07-07] MEDS ORDERED: INSULIN GLARGINE 100 UNITS/ML UNIT SC SCH (21:00)
[2017-07-07] MEDS ORDERED: NON-FORMULARY NEW DRUG (Insulin Detemir [Levemir] 10 UNIT) SQ SCH (21:00)
[2017-07-07] MEDS ORDERED: TERAZOSIN HCL 2 MG CAP PO SCH (21:00)
[2017-07-07] MEDS ORDERED: ATORVASTATIN CALCIUM 40 MG TAB PO SCH (21:00)
[2017-07-08] MEDS: VALPROIC ACID 250 MG/5 ML UDCUP PO SCH ×2 (02:57→07:34)
[2017-07-08] MEDS: CARVEDILOL 25 MG TAB PO SCH ×2 (03:07→07:32)
[2017-07-08 04:09] VITALS: PULSE 67
[2017-07-08] MEDS: LISINOPRIL 40 MG TAB PO SCH ×2 (04:51→07:32)
[2017-07-08] MEDS: INSULIN LISPRO 100 UNIT/ML SC SCH ×2 (07:28→12:21)
[2017-07-08] MEDS: NICOTINE 21 MG/24 HR PATCH TD SCH (07:31)
[2017-07-08] MEDS: QUEtiapine FUMARATE 50 MG TAB PO SCH (07:32)
[2017-07-08] MEDS: OSELTAMIVIR PHOSPHATE 75 MG CAP PO SCH (07:33)
[2017-07-08] MEDS: OXcarbazepine 300 MG TAB PO SCH (07:33)
[2017-07-08] MEDS: FAMOTIDINE 20 MG TAB PO SCH (07:33)
[2017-07-08] MEDS ORDERED: ASPIRIN 325 MG TAB PO SCH (09:00)
[2017-07-08] MEDS ORDERED: CLOPIDOGREL BISULFATE 75 MG TAB PO SCH (09:00)
[2017-07-08] MEDS ORDERED: SERTRALINE HCL 100 MG TAB PO SCH (09:00)
[2017-07-08] MEDS ORDERED: LISINOPRIL 40 MG TAB PO SCH (09:00)
[2017-07-08] MEDS ORDERED: (Linagliptin [Tradjenta] 5 MG) PO SCH (09:00)
[2017-07-08] MEDS ORDERED: MINOXIDIL 10 MG TAB PO SCH (09:00)
[2017-07-08] MEDS ORDERED: POLYETHYLENE GLYCOL 3350 17 GM PKT PO SCH (09:00)
--- NOTE | 2017-07-08 09:50 | NEUROPROG ---
Assessment: HOSPITAL NEUROLOGY CONSULT REQUESTING: Juancarlos Urban MD REASON: ? stroke HPI: 57 year old right-handed man from [facility] with a history of stroke ( unclear deficits), vascular dementia, bipolar disorder, HTN, HLD, DM2 presented to our ED yesterday via EMS. His providers at [facility] had indicated generalized weakness, lethargy, slurred speech and right facial weakness. Patient is agnostic of these issues and is a poor historian, so unclear what truly happened. He was apparently febrile at his SNF. No focal deficits were identified here. He did test positive for influenza B. He only reports being "wheezy" here. He otherwise has no complaints. ROS: As per the HPI, otherwise a complete 12 point ROS was performed and is negative ALLERGIES AND MEDS: As recorded in the EMR - reviewed and reconciled PFSH: As per the intake H&P by Dr. Urban from 07/07 EXAM: VS reviewed in EMR GEN: WDWN sitting in NAD HEENT: NCAT, sclera anicteric, conjunctiva not injected, MMM, oropharynx clear, no scalp tenderness NECK: supple, nontender, no meningismus CV: RRR s1 s2 wo m/r/c/g. Carotid pulses 2+ wo bruit NEURO: MS: awake, alert, oriented to self only. Speech nondysarthric - content of speech tangential. No language disturbance. Follows commands. Attends to both sides. Clear episodic/recent memory impairment on casual conversation. Mood euthymic - odd affect. Adequate fund of knowledge. CN: pupils 3mm round and reactive. He is intolerant of fundoscopy. VFF. Primary gaze centered. Full ocular motility, but smooth pursuits with profound motor impersistence. Facial sensation preserved. Face symmetric, though at times is seen volitionally pulling down the right corner of the mouth. Hearing grossly intact to finger rub. Palatoglossal movements intact. Shoulder shrug and head turn strong. MOTOR: normal bulk/tone. No adventitial movements. Full power throughout. SENSORY: symmetric/intact LT/PP throughout. No extinction. COORD: no ataxia FN/HS. Mark odd and robotic. REFLEX: plantars down. No clonus. DTRS 2/4. GAIT: deferred to PT safety eval DATA REVIEW: Labs reviewed in EMR TTE - mild-mod aortic regurg, otherwise essentially normal PERSONALLY INTERPRETED RESULTS AND DATA: CT head wo - global volume loss, signal attenuation in the periventricular white matter likely reflective of chronic microvascular ischemia, nothing acute Carotid doppler - no hemodynamically significant stenosis, trivial left carotid bulb plaque IMPRESSION AND RECOMMENDATIONS: // INFLUENZA B // LIKELY RECRUDESCENCE OF OLD STROKE DEFICITS VS. ENCEPHALOPATHY Patient with weakness, slurred speech, report of fever and right facial weakness in the setting of patient being positive for influenza. I don't detect anything focal on exam. Likely his infectious illness is resulting in his symptoms. Will screen for new acute ischemia with MRI brain wo. If MRI is without acute changes, can continue with influenza treatment and his current vascular optimization medical regimen and return to [facility]. Case discussed with Dr. Urban. Objective: Vital Signs Temp Pulse Resp BP Pulse Ox 36.8 C 67 16 141/123 H 96 07/08/17 03:00 07/08/17 03:00 07/08/17 03:00 07/08/17 04:16 07/08/17 03:00 07/07/17 07/08/17 07/09/17 05:59 05:59 05:59 Intake Total 1240 Balance 1240 PT 14.6 SEC (12.0-15.0) 07/07/17 06:40 INR 1.12 (0.83-1.16) 07/07/17 06:40 Allergies/Adverse Reactions: No Known Allergies Allergy (Unverified 11/17/16 02:35)
[2017-07-08 11:24] VITALS: BP 152/88; RESP 18; TEMP 97.8; O2SAT 88
--- NOTE | 2017-07-08 13:03 | PDIAF ---
- Diagnosis Diagnosis: influenza B Code Status: Full Code - Medication Management Discharge Medications: Medications to Continue on Transfer Aspirin [Aspirin 325 mg (*)] 325 mg PO DAILY 12/07/15 [Last Taken 07/06/17] Atorvastatin Calcium [Lipitor 40 mg (*)] 40 mg PO HS 12/07/15 [Last Taken ] Carvedilol [Coreg (*)] 25 mg PO BIDMEAL 12/07/15 [Last Taken 07/06/17 16:00] Clopidogrel Bisulfate [Plavix (*)] 75 mg PO DAILY 12/07/15 [Last Taken 07/06/17] Insulin Detemir [Levemir] 10 unit SQ HS 12/07/15 [Last Taken 07/06/17] Lisinopril [Zestril 40 mg (*)] 40 mg PO DAILY 12/07/15 [Last Taken 07/06/17] OXcarbazepine [Trileptal 300mg (*)] 300 mg PO BID 12/07/15 [Last Taken 07/06/17 20:00] Polyethylene Glycol 3350 [Miralax 17 gm (*)] 17 gm PO DAILY 12/07/15 [Last Taken 07/06/17] Terazosin HCl [Hytrin 2 MG (*)] 8 mg PO HS 12/07/15 [Last Taken 07/06/17] amLODIPine BESYLATE [Norvasc 10 mg (*)] 10 mg PO DAILY 12/07/15 [Last Taken 10/16] Acetaminophen [Tylenol 325mg (*)] 650 mg PO Q6HRS PRN 07/07/17 [Last Taken Unknown] Calcium Carbonate [Tums 500MG (*)] 1,000 mg PO BID PRN 07/07/17 [Last Taken Unknown] Cholecalciferol Vit D3 [Vitamin D3 (*)] 50,000 unit PO Q30D 07/07/17 [Last Taken Unknown] Linagliptin [Tradjenta] 5 mg PO DAILY 07/07/17 [Last Taken 07/06/17] Minoxidil [Minoxidil 10 mg (*)] 10 mg PO DAILY 07/07/17 [Last Taken 07/06/17] Polyvinyl Alcohol [Liquitears] 1 drop EACHEYE Q6HRS PRN 07/07/17 [Last Taken 06/18 18:00] QUEtiapine FUMARATE [Seroquel 50 mg (*)] 50 mg PO BID 07/07/17 [Last Taken 07/06 21:00] Ranitidine HCl [Zantac] 150 mg PO BIDMEAL 07/07/17 [Last Taken 07/06/17 16:00] Sertraline HCl [Zoloft 100mg (*)] 100 mg PO DAILY 07/07/17 [Last Taken 07/06/17] Valproic Acid [Depakene 250MG (*)] 375 mg PO TID 07/07/17 [Last Taken 07/06/17 20:00] Oseltamivir Phosphate [Tamiflu 75 mg (*)] 75 mg PO BIDMEAL #0 cap 07/08/17 [ Last Taken Unknown] metFORMIN HCL [Glucophage 1000 mg] 1,000 mg PO BIDMEAL #0 07/08/17 [Last Taken 07/06/17 17:00] Accordion Maker Antibiotics: tamiflu 75mg Po BID; stop after 07/11/17 am dose Discharge Medications: Refer to the Discharge Home Medication list for PRN reason. - Orders Services needed: Registered Nurse, Certified Arabic Translator, Physical Therapy, Occupational Therapy Isolation Type: Droplet Isolation Diet Recommendation: no restrictions on diet Diet Texture: Regular Texture Diet, Thin Liquids, Meds Whole w/Liquids - Follow Up Care Current Providers and Referrals: Patient,NotPresent [Primary Care Provider] - As per Instructions
--- NOTE | 2017-07-08 13:47 | GDS ---
[f rep st] DISCHARGE SUMMARY ALL DIAGNOSES: 1. Influenza B. 2. Fever due to the above. 3. Possible stroke, though unlikely. 4. Encephalopathy. HOSPITAL COURSE: A 57-year-old man brought in from [facility] after question of a stroke. He was febrile. He was positive for influenza B. He was seen by Neurology, who found nothing focal on exa m. Echocardiogram showed no source for cardioembolic cause of a stroke. He had a normal ejection fr action. Carotid Doppler showed no significant stenosis. He had a mildly elevated troponin on admiss ion. He had no chest pain, no wall motion abnormalities on his echocardiogram, unchanged EKG. Head CT was negative for anything acute. He was discharged to [facility] in stable condition. He shou ld complete a course of Tamiflu there and put stop dates on the interagency transfer form. He has a history of an old stroke. He is already on aspirin, Plavix, as well as a statin, which is o ptimal medical management. He has no known history of atrial fibrillation. Neurology had recommende d an MRI, though he refused. It is doubtful that it would significantly chemical cell changer. He had a mildly elevated troponin on admission. His EKG was unchanged. He refused a followup draw. He was having no chest pain. I think ACS is very unlikely. BILLING: I spent more than 30 minutes on the day of discharge coordinating care. /[id number]/MODL
--- NOTE | 2017-07-08 14:08 | ASMTCASEMG ---
Living Arrangements What is your living Answers: Alone arrangement? Who do you live with? Type Of Residence What kind of residence do Answers: Longterm Facility you live in? Type of Residence Facility Name Notes: [facility] Discharge Plan Comments Coordination Status Comments Notes: Pt is a 57 y/o man admitted for influenza and AMS. Pt has dementia. Pt lives at [facility]. Pt is being discharged today. CM provided AVEL Malave w/ phone number to give report. CM sent d/c orders. CM available for changes. Plan: [facility] Date Signed: 07/08/2017 02:08 PM Electronically Signed By:SUKHI Tapia
--- NOTE | 2017-07-09 08:53 | ASDISCHSUM ---
Discharge Information Plan Status:SNF Medically Cleared to Leave:07/07/2017 Discharge Date:07/08/2017 04:25 PM CM D/C Disposition: ADT D/C Disposition:[facility] Facility Projected Discharge Date:07/08/2017 11:00 AM Transportation at D/C: Discharge Delay Reason: Follow-Up Date:07/08/2017 11:00 AM Discharge Slot: Final Diagnosis: Placement Information Referral Type:*[facility]/SNF Referral ID:[id number] Provider Name:CALDERON Carlos Address 1:[address] Phone Number: Address 2: Fax Number: [facility]:[place] Selection Factors: State:[place] Patient Contact Information Contact Name:DAVIDE Relationship:Daughter Address: Work Phone: City: [facility] Phone: [facility] Code: Email: Financial Information Financial Class: Primary Plan Desc:[employer] [place] Primary Plan Number:[id number] Secondary Plan Desc: Secondary Plan Number: Assessment Information [facility] Initial CM Assessment Living Arrangements What is your living Answers: Alone arrangement? Who do you live with? Type Of Residence What kind of residence do Answers: [facility] Facility you live in? Type of Residence Facility Name Notes: [facility] Discharge Plan Comments Coordination Status Comments Notes: Pt is a 57 y/o man admitted for influenza and AMS. Pt has dementia. Pt lives at [facility]. Pt is being discharged today. CM provided AVEL Malave w/ phone number to give report. CM sent d/c orders. CM available for changes. Plan: [facility] Date Signed: 07/08/2017 02:08 PM Electronically Signed By:SUKHI Tapia Intervention Information
== END 2017-07-08 16:25 ==
LOC: EDUNIT# → F2W 14:25
PROVIDERS: ADMIT Student in an Organized Health Care Education/Training Program; ATTEND Student in an Organized Health Care Education/Training Program
DX: J10.1 Influenza due to other identified influenza virus with other respiratory manifestations (principal); G93.40 Encephalopathy, unspecified; Z86.73 Personal history of transient ischemic attack (TIA), and cerebral infarction without residual deficits
CPT/HCPCS: 70450; 71045; 92610; 93005; 93306; 93880; 96360; 97161; 97165; 97535; 99285; G0378; J1815; J2060